=== PATIENT | male | born 1980 | race Two or more races ===

== ENCOUNTER 2021-01-22 15:52 | Emergency (ER) | payer MEDICAID, OTHER ==
[2021-01-22] MEDS ORDERED: Acetaminophen/oxyCODONE 325-5 MG Tab PO PRN (16:13)
[2021-01-22] MEDS ORDERED: Acetaminophen/oxyCODONE 325-5 MG Tab ONE (16:16)
[2021-01-22] MEDS ORDERED: Diphtheria,Pertussis(Acell),Tetanus Vaccine 0.5 ML Syringe IM ONE (16:20)
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
--- NOTE | 2021-01-23 08:57 | CR ---
Ankle Min 3V Lt CLINICAL HISTORY: Nail in ankle FINDINGS: There is a nail medial aspect of the tibial metaphysis just penetrating the cortex. No fracture seen. Impression: Nail in the medial tibial metaphysis
--- NOTE | 2021-01-23 08:58 | CR ---
Ankle 2V Lt CLINICAL HISTORY: Post nail removal FINDINGS: There is a small linear metallic retained foreign body in the medial ankle abutting the medial tibial metaphyseal cortex Impression: Retained metallic foreign body
== END 2021-01-22 18:01 | disposition home or self-care (01) ==
LOC: JP.ED 15:52
DX: S91.042A Puncture wound with foreign body, left ankle, initial encounter (principal); Z23 Encounter for immunization; W29.4XXA Contact with nail gun, initial encounter
CPT/HCPCS: 73600-26-LT; 73600-LT; 73610-26-LT; 73610-LT; 90471; 90715; 99283; A9270-GY